=== PATIENT | female | born 1960 | race Caucasian/White ===

== ENCOUNTER 2018-08-08 07:31 | Emergency (ER) | payer OTHER ==
[~2018-08-08] VITALS: Ht 177.8 cm; Wt 83.9 kg
[~2018-08-08 07:31] MED LIST: CITA10TA17 PO; HYDR12.5 PO; IBUP-785 PO
[2018-08-08] MEDS ORDERED: PANT40TA2 PO (08:29)
--- NOTE | 2018-08-08 08:34 | NUR ---
is at bedside doing the MSE.
--- NOTE | 2018-08-08 08:43 | NUR ---
Patient refused any IV line. Oral fluids (1000ml) provided.
[2018-08-08] MEDS ORDERED: IBUPROFEN 600 MG TABLET PO ONE (08:45)
[2018-08-08] MEDS ORDERED: ACETAMINOPHEN ES 500 MG TABLET PO ONE (08:45)
--- NOTE | 2018-08-08 08:46 | NUR ---
Patient refused flu swab at this time. aware.
[2018-08-08] MEDS ORDERED: ACETAMINOPHEN ES 500 MG TABLET ONE (08:48)
[2018-08-08] MEDS ORDERED: IBUPROFEN 600 MG TABLET ONE (08:48)
[2018-08-08 09:02] LABS: BASOPHILS # (AUTO) 0.1 K/uL (0.0-8.0); BASOPHILS % (AUTO) 0.5 % (0.0-2.0); HEMATOCRIT 37.3 % (31.2-41.9); HEMOGLOBIN 13.1 g/dL (10.9-14.3); LYMPHOCYTES # (AUTO) 1.8 K/uL (20.0-40.0); LYMPHOCYTES % (AUTO) 16.3 % (20.5-51.5); MEAN CORPUSCULAR HEMOGLOBIN 32.6 uug (24.7-32.8); MEAN CORPUSCULAR HGB CONC 35 g/dL (32.3-35.6); MEAN CORPUSCULAR VOLUME 93.2 fL (75.5-95.3); MONOCYTES # (AUTO) 1.2 K/uL (2.0-10.0); NEUTROPHILS # (AUTO) 7.8 K/uL (1.8-8.9); NEUTROPHILS % (AUTO) 72.2 % (38.5-71.5); PLATELET COUNT (AUTO) 262 K/uL (179-408); RED BLOOD CELL COUNT(AUTO) 4.01 MIL/uL (3.63-4.92); WHITE BLOOD COUNT (AUTO) 10.8 K/uL (3.8-11.8)
[2018-08-08 09:04] LABS: *BILIRUBIN,URIN NEGATIVE (NEGATIVE); *BLOOD, URINE 2+ (NEGATIVE); *CLARITY,URINE CLEAR (CLEAR); *COLOR,URINE YELLOW (YELLOW); *KETONES,URINE TRACE (NEGATIVE); *PROTEIN,URINE 1+ (NEGATIVE); *UROBILINOGEN,URINE 0.2 E.U./dl (NORMAL); LEUKOCYTE ESTERASE ,URINE 2+ (NEGATIVE); NITRITE, URINE POSITIVE (NEGATIVE); UGLUCOSE NEGATIVE (NEGATIVE)
[2018-08-08 09:05] LABS: BACTERIA,URINE MANY /HPF (NONE SEEN); SQUAMOUS EPITHELIAL CELL,UR FEW /HPF (NONE SEEN)
[2018-08-08 09:08] LABS: CREATININE 0.8 mg/dL (0.6-1.3); POTASSIUM 2.9 mmol/L (3.5-5.1)
[2018-08-08] MEDS ORDERED: POTASSIUM CHLORIDE 20 MEQ TAB.PRT.SR ONE (09:23)
[2018-08-08] MEDS ORDERED: CEPHALEXIN MONOHYDRATE 500 MG CAPSULE ONE (09:23)
--- NOTE | 2018-08-08 09:28 | NUR ---
Patient says that she feels better. Patient is now discharged to home in stable conditon. Written and verbal after care instructions given to patient. Patient verbalizes understanding of instructions. Patient left ER with brisk steady gait.
[2018-08-08] MEDS ORDERED: CEPHALEXIN MONOHYDRATE 500 MG CAPSULE PO ONE (09:30)
[2018-08-08] MEDS ORDERED: POTASSIUM CHLORIDE 20 MEQ TAB.PRT.SR PO ONE (09:30)
== END 2018-08-08 09:31 | disposition home or self-care (01) ==
LOC: ER 07:34
DX: N39.0 Urinary tract infection, site not specified (principal); E87.6 Hypokalemia; R51 Headache; R11.0 Nausea; I10 Essential (primary) hypertension
CPT/HCPCS: 36415; 71045; 85025; 87040; 87077; 87086; A4663; A9150

== ENCOUNTER 2019-11-11 09:57 | Emergency (ER) | payer OTHER ==
[~2019-11-11] VITALS: Ht 177.8 cm; Wt 81.6 kg
[~2019-11-11 09:57] MED LIST changes: -IBUP-785 PO; +PANT40TA2 PO
--- NOTE | 2019-11-11 10:40 | NUR ---
PT WAS D/C'd TO HOME AFTER DR HALL EVALUATION. D/C INSTRUCTIONS GIVEN TO THE PT BY DR HALL.
[2019-11-11 10:41] VITALS: BP 133/71
== END 2019-11-11 10:42 | disposition home or self-care (01) ==
LOC: ER 09:57
DX: I80.9 Phlebitis and thrombophlebitis of unspecified site (principal); I10 Essential (primary) hypertension; Z79.899 Other long term (current) drug therapy
CPT/HCPCS: A4663

== ENCOUNTER 2021-07-10 08:53 | Emergency (ER) | payer OTHER ==
[~2021-07-10] VITALS: Ht 177.8 cm; Wt 79.4 kg
[2021-07-10] MEDS ORDERED: HYDR-4209 PO ×3 (09:27→10:13)
[2021-07-10] MEDS ORDERED: CYCL7.5T17 PO (09:27)
[2021-07-10] MEDS ORDERED: HYDR-3980 PO ×2 (09:31→09:36)
[2021-07-10] MEDS ORDERED: CYCL5TAB PO (09:39)
--- NOTE | 2021-07-10 09:59 | NUR ---
Patient discharged to home in stable condition. Written and verbal after care instructions given. Patient verbalizes understanding of instructions. Stressed follow up or return to ER for worsening s/s.
== END 2021-07-10 09:59 | disposition home or self-care (01) ==
LOC: ER 08:53
DX: M54.9 Dorsalgia, unspecified (principal); I10 Essential (primary) hypertension; Z87.19 Personal history of other diseases of the digestive system; Z87.11 Personal history of peptic ulcer disease; Z79.899 Other long term (current) drug therapy
CPT/HCPCS: A4663

== ENCOUNTER 2024-03-12 09:22 | Emergency (ER) | payer OTHER ==
[~2024-03-12] VITALS: Ht 177.8 cm; Wt 74.8 kg
[~2024-03-12 09:22] MED LIST changes: +CYCL5TAB PO; +CYCL7.5T17 PO; +HYDR-3980 PO
[2024-03-12] MEDS ORDERED: ESTR1VAG VG (09:33)
[2024-03-12 09:34] VITALS: O2SAT 97
[2024-03-12 09:59] LABS: BASOPHILS % (AUTO) 0.3 % (0.0-2.0); EOSINOPHILS % (AUTO) 0.4 % (0.0-7.0); HEMATOCRIT 37.4 % (31.2-41.9); HEMOGLOBIN 13.4 g/dL (10.9-14.3); LYMPHOCYTES # (AUTO) 2.7 K/uL (0.8-4.8); LYMPHOCYTES % (AUTO) 26.7 % (20.5-51.5); MEAN CORPUSCULAR HEMOGLOBIN 32.4 uug (24.7-32.8); MEAN CORPUSCULAR HGB CONC 36 g/dL (32.3-35.6); MEAN CORPUSCULAR VOLUME 90.6 fL (75.5-95.3); MONOCYTES # (AUTO) 0.7 K/uL (0.1-1.30); MONOCYTES % (AUTO) 7.2 % (0.0-11.0); NEUTROPHILS # (AUTO) 6.6 K/uL (1.8-8.9); NEUTROPHILS % (AUTO) 65.4 % (38.5-71.5); PLATELET COUNT (AUTO) 291 K/uL (179-408); RED BLOOD CELL COUNT(AUTO) 4.12 MIL/uL (3.63-4.92); WHITE BLOOD COUNT (AUTO) 10.1 K/uL (3.8-11.8)
[2024-03-12 10:07] LABS: CALCIUM 8.8 mg/dL (8.5-10.1); CREATININE 0.8 mg/dL (0.6-1.3); POTASSIUM 3.3 mmol/L (3.5-5.1)
[2024-03-12 10:18] LABS: DIFFERENTIAL COMMENT 1
[2024-03-12] MEDS ORDERED: POTASSIUM BICARBONATE/CIT AC 25 MEQ TABLET.EFF ONE (10:25)
[2024-03-12] MEDS: POTASSIUM BICARBONATE/CIT AC 25 MEQ TABLET.EFF PO ONE (10:27)
[2024-03-12] MEDS ORDERED: WALK1EAC55 MC (11:00)
[2024-03-12] MEDS ORDERED: ACET1TAB23 PO (11:00)
== END 2024-03-12 11:41 | disposition home or self-care (01) ==
LOC: ER 09:24
DX: S82.62XA Displaced fracture of lateral malleolus of left fibula, initial encounter for closed fracture (principal); E87.6 Hypokalemia; I10 Essential (primary) hypertension; Z79.899 Other long term (current) drug therapy; X50.1XXA Overexertion from prolonged static or awkward postures, initial encounter; Y93.89 Activity, other specified; Y92.89 Other specified places as the place of occurrence of the external cause; Y99.8 Other external cause status
CPT/HCPCS: 36415; 73610; 85025; A4606; A4663

== ENCOUNTER 2024-12-05 12:53 | Emergency (ER) | payer OTHER ==
[~2024-12-05] VITALS: Ht 177.8 cm; Wt 80.7 kg
[~2024-12-05 12:53] MED LIST changes: +ACET1TAB23 PO; -CYCL5TAB PO; -CYCL7.5T17 PO; +ESTR1VAG VG; +WALK1EAC55 MC
[2024-12-05 15:25] LABS: BASOPHILS % (AUTO) 0.4 % (0.0-2.0); EOSINOPHILS % (AUTO) 0.4 % (0.0-7.0); HEMATOCRIT 38.6 % (31.2-41.9); HEMOGLOBIN 13.1 g/dL (10.9-14.3); LYMPHOCYTES # (AUTO) 3.3 K/uL (0.8-4.8); LYMPHOCYTES % (AUTO) 27.2 % (20.5-51.5); MEAN CORPUSCULAR HGB CONC 34 g/dL (32.3-35.6); MEAN CORPUSCULAR VOLUME 93.9 fL (75.5-95.3); MONOCYTES # (AUTO) 0.8 K/uL (0.1-1.30); MONOCYTES % (AUTO) 6.4 % (0.0-11.0); NEUTROPHILS # (AUTO) 7.9 K/uL (1.8-8.9); NEUTROPHILS % (AUTO) 65.6 % (38.5-71.5); PLATELET COUNT (AUTO) 345 K/uL (179-408); RED BLOOD CELL COUNT(AUTO) 4.11 MIL/uL (3.63-4.92)
[2024-12-05 15:28] LABS: DIFFERENTIAL COMMENT 1
[2024-12-05 15:34] LABS: CALCIUM 9.2 mg/dL (8.5-10.1); CARBON DIOXIDE 29 mmol/L (21-32); CHLORIDE 102 mmol/L (98-107); CREATININE 0.7 mg/dL (0.6-1.3); GLUCOSE 93 mg/dL (74-106); POTASSIUM 4.4 mmol/L (3.5-5.1); SODIUM SERUM 138 mmol/L (136-145); UREA NITROGEN, BLOOD 18 mg/dL (7-18)
[2024-12-05 15:40] LABS: ALANINE AMINOTRANSFERASE 20 U/L (14-59); ALBUMIN 3.4 g/dL (3.4-5.0); ALKALINE PHOSPHATASE 78 U/L (50-136); ASPARTATE AMINOTRANSFERASE < 5 U/L (15-37); BILIRUBIN,DIRECT 0.1 mg/dL (0.0-0.2); BILIRUBIN,TOTAL 0.4 mg/dL (0.2-1.0); TOTAL PROTEIN, SERUM 8.4 g/dL (6.4-8.2)
[2024-12-05] MEDS ORDERED: CEPH500C2 PO (15:53)
[2024-12-05 16:03] VITALS: BP 109/72; TEMP 98.6; O2SAT 99
== END 2024-12-05 16:36 | disposition home or self-care (01) ==
LOC: ER 16:32
DX: M26.629 Arthralgia of temporomandibular joint, unspecified side (principal); I10 Essential (primary) hypertension; K21.9 Gastro-esophageal reflux disease without esophagitis; J32.0 Chronic maxillary sinusitis; Z79.899 Other long term (current) drug therapy; Z60.2 Problems related to living alone; Z88.7 Allergy status to serum and vaccine
CPT/HCPCS: 36415; 85025; 85651; A4606; A4663

== ENCOUNTER 2025-10-28 09:00 | Emergency (ER) | payer OTHER ==
[~2025-10-28] VITALS: Ht 177.8 cm; Wt 81.6 kg
[~2025-10-28 09:00] MED LIST changes: -ACET1TAB23 PO; +ACET1TAB93 PO; +CEPH500C2 PO; -ESTR1VAG VG; +ESTR1VAG10 VG
[2025-10-28 09:05] VITALS: BP 127/68
[2025-10-28] MEDS ORDERED: FLUORESCEIN SODIUM 1 MG STRIP ONE (09:19)
[2025-10-28] MEDS ORDERED: TETRACAINE HCL 0.5% OPHT DROP 2 ML BOTTLE ONE (09:20)
[2025-10-28] MEDS: TETRACAINE HCL 0.5% OPHT DROP 2 ML BOTTLE OP ONE (09:28)
[2025-10-28] MEDS: FLUORESCEIN SODIUM 1 MG STRIP OP ONE (09:28)
[2025-10-28 10:00] VITALS: BP 127/68; O2SAT 99
== END 2025-10-28 10:01 | disposition home or self-care (01) ==
LOC: ER 09:29
DX: H04.122 Dry eye syndrome of left lacrimal gland (principal); Z79.899 Other long term (current) drug therapy; Z87.11 Personal history of peptic ulcer disease; Z88.7 Allergy status to serum and vaccine
CPT/HCPCS: A4606; A4663